=== PATIENT | male | born 1990 | race Caucasian/White ===

== ENCOUNTER 2019-09-22 23:38 | Emergency (ER) | payer SELFPAY ==
[2019-09-23] MEDS ORDERED: Tetan/Diph/Pertus SYR(Tdap)* 0.5 ML SYR(BOOSTRIX) use SYR contains LATEX IM ONE (00:03)
--- NOTE | 2019-09-23 00:03 | ED ---
Laceration/Wound HPI - HPI Summary HPI Summary: 29 year male presents with right finger laceration today. He states he stuck his hand into something at work and there was a sharp edge to the glass and he cut his finger. Denies any foreign body to the wound. Unsure when last tetanus was. Has no medical conditions. Area is not actively bleeding. Has full range of motion of finger. - History of Current Complaint Stated Complaint: FINGER LAC PER EMS Time Seen by Provider: 09/22/19 23:45 Pain Intensity: 8 - Allergy/Home Medications Allergies/Adverse Reactions: Allergies Allergy/AdvReac Type Severity Reaction Status Date / Time Penicillins Allergy Anaphylatic Verified 09/23/19 00:12 Shock Home Medications: Home Medications NK [No Home Medications Reported] 09/23/19 [History Confirmed 09/23/19] PMH/Surg Hx/FS Hx/Imm Hx Endocrine/Hematology History: Denies: Hx Anticoagulant Therapy Respiratory History: Denies: Hx Asthma - Immunization History Immunizations Up to Date: No Infectious Disease History: No Infectious Disease History: Denies: Traveled Outside the [place] in Last 30 Days - Family History Known Family History: Positive: Non-Contributory - Social History Alcohol Use: None Substance Use Type: Reports: None Smoking Status (MU): Light Every Day Tobacco Smoker Review of Systems Negative: Fever Negative: Chest Pain Negative: Shortness Of Breath Positive: Myalgia - right middle finger laceration All Other Systems Reviewed And Are Negative: Yes Physical Exam Triage Information Reviewed: Yes Vital Signs On Initial Exam: Initial Vitals Temp Pulse Resp BP Pulse Ox 98.6 F 78 18 121/64 97 09/22/19 23:46 09/22/19 23:46 09/22/19 23:46 09/22/19 23:46 09/22/19 23:46 Vital Signs Reviewed: Yes Appearance: Positive: Well-Appearing Skin: Positive: Warm, Dry, Other - 2cm 1/2cm by 1/2cm flap like laceration right middle finger Head/Face: Positive: Normal Head/Face Inspection Eyes: Positive: Normal, Conjunctiva Clear ENT: Positive: Pharynx normal Respiratory/Lung Sounds: Positive: Clear to Auscultation, Breath Sounds Present Cardiovascular: Positive: Normal, RRR Musculoskeletal: Positive: Strength/ROM Intact - right hand, Other - capillary refill<2 secs Neurological: Positive: Normal Psychiatric: Positive: Normal Procedures - Sedation Patient Received Moderate/Deep Sedation with Procedure: No - Laceration/Wound Repair 1 Location: Other - right middle finger Description: Irregular Anesthesia: Digital, 1.0% Length, Depth and Shape: 2 1/2cm by 1/2cm flap like laceration of distal phalanx Irrigated w/ Saline (ccs): 500 Closure: Single Layer Suture Type: Prolene Number of Sutures: 4 Layer Closure?: No Diagnostics - Vital Signs Vital Signs Temp Pulse Resp BP Pulse Ox 09/22/19 23:46 98.6 F 78 18 121/64 97 - Laboratory Lab Statement: Any lab studies that have been ordered have been reviewed, and results considered in the medical decision making process. Laceration Repair Course/Dx - Course Course Of Treatment: 29 year male presents with right finger laceration today. He states he stuck his hand into something at work and there was a sharp edge to the glass and he cut his finger. Denies any foreign body to the wound. Unsure when last tetanus was. Has no medical conditions. Area is not actively bleeding. Has full range of motion of finger. on exam has 2 1/2cm by 1/2cm to right middle finger that is flap like. cleaned area and placed 4 sutures. told to keep area clean and dry. gave tetanus. patient understand and agrees with plan. - Differential Dx Differental Diagnoses: Abrasion, Avulsion, Laceration - Clinical Impression Provider Diagnoses: Laceration of right middle finger Discharge ED - Sign-Out/Discharge Documenting (check all that apply): Patient Departure - Discharge Plan Condition: Good Disposition: HOME Patient Education Materials: Care For Your Stitches (ED) Referrals: Adrian Gutierrez MD [Primary Care Provider] - Additional Instructions: Take Tylenol or ibuprofen for pain every 6 hours as needed Keep area clean and dry for 24 hours Return to ED or primary in 8-10 days to have sutures removed Return to ED if develop signs of infection such as fever, spreading redness, or pus. - Billing Disposition and Condition Condition: GOOD Disposition: Home
[2019-09-23 00:53] VITALS: BP 105/64
== END 2019-09-23 00:53 | disposition home or self-care (01) ==
LOC: ED 23:38
DX: S61.212A Laceration without foreign body of right middle finger without damage to nail, initial encounter (principal); W25.XXXA Contact with sharp glass, initial encounter; Y93.89 Activity, other specified; Y92.9 Unspecified place or not applicable; Y99.0 Civilian activity done for income or pay; Z23 Encounter for immunization; Z88.0 Allergy status to penicillin; F17.200 Nicotine dependence, unspecified, uncomplicated
CPT/HCPCS: 12001; 90471; 90715; 99282

== ENCOUNTER 2019-10-01 07:24 | Emergency (ER) | payer OTHER ==
--- NOTE | 2019-10-01 07:40 | ED ---
ED Suture/Wound Check - HPI Summary HPI Summary: This pt is a 29 Y/O M [place] [facility] [place] from the tip of his R middle finger. He states that still has pain, rated a 1/10 in severity, with the laceration but denies any pus or redness emanating from surgical site. He states that he has 4 stitches that were placed on the 28 of September after grabbing some broken glass. He denies any pertinent PMHx and states that he has a SHx of smoking cigarettes. - History Of Current Complaint Chief Complaint: EDLacSutureRecheck Stated Complaint: HERE TO GET STITCHES OUT PER PT Time Seen by Provider: 10/01/19 07:28 Hx Obtained From: Patient Onset/Duration: Sudden Onset, Lasting Days - 3, Still Present Surgical Site: R middle finger Severity: Mild Pain Intensity: 1 Pain Scale Used: 0-10 Numeric Procedure Type: Stitch removal - Allergies/Home Medications Allergies/Adverse Reactions: Allergies Allergy/AdvReac Type Severity Reaction Status Date / Time Penicillins Allergy Anaphylatic Verified 10/01/19 07:28 Shock Home Medications: Home Medications NK [No Home Medications Reported] 09/23/19 [History Confirmed 09/23/19] PMH/Surg Hx/FS Hx/Imm Hx Previously Healthy: Yes Endocrine/Hematology History: Denies: Hx Anticoagulant Therapy Respiratory History: Denies: Hx Asthma - Cancer History Hx Chemotherapy: No Hx Radiation Therapy: No - Surgical History Surgical History: None - Immunization History Immunizations Up to Date: Yes Infectious Disease History: No Infectious Disease History: Denies: Traveled Outside the [place] in Last 30 Days - Family History Known Family History: Negative: Hypertension, Diabetes - Social History Occupation: Employed Full-time Lives: Alone Alcohol Use: None Hx Substance Use: No Substance Use Type: Reports: None Hx Tobacco Use: Yes Smoking Status (MU): Light Every Day Tobacco Smoker Review of Systems Musculoskeletal: Other - stitches on R middle finger Skin: Negative - redness or pus coming from wound All Other Systems Reviewed And Are Negative: Yes Physical Exam - Summary Physical Exam Summary: Appearance: Well-appearing, Well-nourished, lying in bed comfortable Skin: Warm, dry, no obvious rash Eyes: sclera anicteric, no conjunctival pallor ENT: mucous membranes moist Neck: deferred Respiratory: No signs of respiratory distress Cardiovascular: Appears well perfused, pulses are nml Abdomen: deferred Musculoskeletal: Moving all 4 extremities without obvious discomfort, R middle present over the palmar aspect of the R middle finger, no erythema, no pus Neurological: Awake and alert, mentation is normal, speech is fluent and appropriate Psychiatric: affect is normal, does not appear anxious or depressed Triage Information Reviewed: Yes Vital Signs On Initial Exam: Initial Vitals Temp Pulse Resp BP Pulse Ox 97.1 F 76 16 122/71 99 10/01/19 07:25 10/01/19 07:25 10/01/19 07:25 10/01/19 07:25 10/01/19 07:25 Vital Signs Reviewed: Yes Procedures - Procedure Summary Procedure Summary: 4 sutures were removed from the pt's R middle finger. - Sedation Patient Received Moderate/Deep Sedation with Procedure: No Diagnostics - Vital Signs Vital Signs Temp Pulse Resp BP Pulse Ox 10/01/19 07:25 97.1 F 76 16 122/71 99 - Laboratory Lab Statement: Any lab studies that have been ordered have been reviewed, and results considered in the medical decision making process. Course/Dx - Course Course Of Treatment: Patient is here needing his sutures removed. Patient had sutures placed on the 13th on his finger. Patient has no evidence of infection and his wound is well-appearing. Patient had successful removal of the sutures - Clinical Impression Provider Diagnoses: Visit for suture removal Discharge ED - Sign-Out/Discharge Documenting (check all that apply): Patient Departure - discahrge - Discharge Plan Condition: Good Disposition: HOME Patient Education Materials: Stitches Removal (ED) Referrals: Adrian Gutierrez MD [Primary Care Provider] - Additional Instructions: PLEASE RETURN TO THE EMERENCY DEPARTMENT FOR ANY PUS OR REDNESS COMING FROM THE WOUND. - Billing Disposition and Condition Condition: GOOD Disposition: Home - Attestation Statements Document Initiated by Scribe: Yes Documenting Scribe: Sukumar Solorzano Provider For Whom Osiris is Documenting (Include Credential): Derian Strickland MD Scribe Attestation: Sukumar Monahan, scribed for Derian Strickland MD on 10/01/19 at 0913. Scribe Documentation Reviewed: Yes Provider Attestation: The documentation as recorded by the Sukumar owens accurately reflects the service I personally performed and the decisions made by me, Derian Strickland MD Status of Scribe Document: Viewed
[2019-10-01 07:50] VITALS: BP 0/0
== END 2019-10-01 07:45 | disposition home or self-care (01) ==
LOC: ED 07:24
DX: S61.212D Laceration without foreign body of right middle finger without damage to nail, subsequent encounter (principal); X58.XXXD Exposure to other specified factors, subsequent encounter; Z48.02 Encounter for removal of sutures; Z88.0 Allergy status to penicillin; F17.210 Nicotine dependence, cigarettes, uncomplicated
CPT/HCPCS: 99281

== ENCOUNTER 2020-12-26 05:53 | Observation (INO) ==
[~2020-12-26 05:53] MED LIST: HYDROmorphone 1 MG/1 ML SYRINGE IV PRN; Naloxone 0.4 mg VIAL 0.4 mg/ml 1 ml VIAL IV PRN; Ondansetron 4 mg VIAL 2 MG/ML 2 ml VIAL IV PRN; fentaNYL 100 mcg/2 ml 50 MCG/ML VIAL IV PRN
[2020-12-26] MEDS ORDERED: Lactated Ringers 1000 ml BAG 1,000 ML IV SCH (06:00)
[2020-12-26] MEDS ORDERED: DiMENhydriNATE IV 50 mg/ml 1 ml VIAL IV PUSH ONE (06:00)
[2020-12-26] MEDS ORDERED: Buffered Lidocaine 1% SYRIN 1 ml INTRADERM ONE (06:00)
[2020-12-26] MEDS ORDERED: DiMENhydriNATE IV 50 mg/ml 1 ml VIAL ONE (06:28)
[2020-12-26] MEDS ORDERED: Rocuronium 50 mg VIAL 10 mg/ml 5 ml VIAL (50 mg) ONE ×2 (06:55→09:16)
[2020-12-26] MEDS ORDERED: fentaNYL 250 mcg/5 ml 50 MCG/ML 5 ml VIAL (250 MCG) ONE (06:55)
[2020-12-26] MEDS ORDERED: Propofol 10 MG/ML 20 ML BTL ONE (06:55)
[2020-12-26] MEDS ORDERED: Ondansetron 4 mg VIAL 2 MG/ML 2 ml VIAL ONE (06:55)
[2020-12-26] MEDS ORDERED: Dexamethasone IV 4 MG/ML VIAL 1 ml VIAL ONE ×2 (06:55→08:41)
[2020-12-26] MEDS ORDERED: Midazolam 2 mg/2 ml VIAL 1 mg/ml 2 ml VIAL (2 mg) ONE (06:55)
[2020-12-26] MEDS ORDERED: Lidocaine 2% PF 5 ML VIAL ONE (06:55)
[2020-12-26] MEDS ORDERED: Vancomycin 1,250 MG in NS 0.9% 250 ml 250 ML IVPB ONE (07:00)
[2020-12-26 07:07] LABS: INR 1.33 (0.82-1.09)
[2020-12-26] MEDS ORDERED: Bacitracin INJECTION 50,000 UNITS ONE ×2 (07:13→08:17)
[2020-12-26] MEDS ORDERED: Bupivacaine 0.25% SDV 30 ML ONE (07:13)
[2020-12-26 07:18] LABS: Blood Urea Nitrogen 15 mg/dL (6-24); CO2 Carbon Dioxide 27 mmol/L (22-32); Calcium 9.8 mg/dL (8.6-10.3); Chloride 105 mmol/L (101-111); EGFR African American 108.7 (>60); EGFR Non-African American 89.8 (>60); Glucose 102 mg/dL (70-100); Sodium 136 mmol/L (135-145)
[2020-12-26 07:55] LABS: Albumin 4.4 g/dL (3.2-5.2)
[2020-12-26 08:01] LABS: ALT 36 U/L (7-52); Albumin/Globulin Ratio 1.5 (1-3); Alkaline Phosphatase 80 U/L (34-104); Total Protein 7.4 g/dL (6.4-8.9)
[2020-12-26 08:03] LABS: Anion Gap 4 mmol/L (2-11)
[2020-12-26] MEDS ORDERED: Phytonadione SUBCUT/IM Adult 10 MG/ML AMP (IM or SQ not preferred route) IM ONE (08:10)
[2020-12-26 08:37] LABS: Potassium Redraw 3.8 mmol/L (3.5-5.0)
[2020-12-26] MEDS ORDERED: HYDROcodone/ACETAMIN 5/325 mg TAB PO PRN ×2 (10:51)
[2020-12-26] MEDS ORDERED: Ondansetron 4 mg VIAL 2 MG/ML 2 ml VIAL IV PRN (10:51)
[2020-12-26 13:17] VITALS: BP 107/61
== END 2020-12-26 14:02 | disposition home or self-care (01) ==
LOC: SSU 05:53 → OR 05:53
PROVIDERS: ADMIT Neurological Surgery; ATTEND Neurological Surgery